=== PATIENT | male | born 1950 | race Caucasian/White ===

== ENCOUNTER → 2025-01-01 12:03 | Outpatient (CLI) | payer MEDICARE, OTHER, SELFPAY ==
[2025-01-01 19:47] LABS: Add Manual Diff / Slide Review NO; Hematocrit 28.6 % (41-53); Hemoglobin 9.4 g/dL (13.5-17.5); Lymphocytes Absolute Auto 1400 /uL (1100-4500); Mean Corpuscular HGB Conc 32.9 % (30-36); Mean Corpuscular Hemoglobin 29.5 PG (26-34); Mean Corpuscular Volume 89.8 fL (80-100); Platelet Count 417 X10^3/uL (150-400)
[2025-01-01 20:10] LABS: Blood Urea Nitrogen 21 mg/dL (9-20); Calcium 9.0 mg/dL (8.4-10.2); Carbon Dioxide 23 mmol/L (22-32); Chloride 100 mmol/L (98-107); Estimated Glomerular Filt Rate > 60 mL/min (>60); Glucose 75 mg/dL (70-99); HEMOLYSIS < 15 (0-50); Iron 29 ug/dL (49-181); Potassium 4.1 mmol/L (3.4-5.1); Sodium 134 mmol/L (137-145)
[2025-01-01 20:22] LABS: Percent Iron Saturation 8 % (20-50); Total Iron Binding Capacity 377 ug/dL (261-462); Transferrin 300 mg/dL (206-381)
== END ==
DX: K92.2 Gastrointestinal hemorrhage, unspecified (principal); E10.9 Type 1 diabetes mellitus without complications
CPT/HCPCS: 80048; 83540; 83550; 85025

== ENCOUNTER → 2025-02-10 11:36 | Outpatient (CLI) | payer MEDICARE, OTHER, SELFPAY ==
[2025-02-10 18:56] LABS: Add Manual Diff / Slide Review NO; Hematocrit 34.5 % (41-53); Hemoglobin 11.0 g/dL (13.5-17.5); Lymphocytes Absolute Auto 1300 /uL (1100-4500); Mean Corpuscular HGB Conc 31.9 % (30-36); Mean Corpuscular Hemoglobin 25.7 PG (26-34); Mean Corpuscular Volume 80.5 fL (80-100); Platelet Count 281 X10^3/uL (150-400)
[2025-02-10 19:10] LABS: HEMOLYSIS < 15 (0-50); Iron 187 ug/dL (49-181)
[2025-02-10 19:18] LABS: Blood Urea Nitrogen 20 mg/dL (9-20); Calcium 9.9 mg/dL (8.4-10.2); Carbon Dioxide 25 mmol/L (22-32); Chloride 99 mmol/L (98-107); Estimated Glomerular Filt Rate > 60 mL/min (>60); Glucose 173 mg/dL (70-99); HEMOLYSIS < 15 (0-50); Potassium 4.8 mmol/L (3.4-5.1); Sodium 132 mmol/L (137-145)
[2025-02-10 19:21] LABS: Percent Iron Saturation 50 % (20-50); Total Iron Binding Capacity 372 ug/dL (261-462); Transferrin 298 mg/dL (206-381)
[2025-02-10 19:49] LABS: Ferritin 13 ng/mL (18-464)
[2025-02-10 20:04] LABS: Anisocytosis 1+; Target Cells 1+
[2025-02-10 20:05] LABS: Microcytosis 1+
== END ==
PROVIDERS: Visit Provider Internal Medicine
DX: D50.9 Iron deficiency anemia, unspecified (principal); E87.1 Hypo-osmolality and hyponatremia; Z87.19 Personal history of other diseases of the digestive system
CPT/HCPCS: 80048; 82728; 83540; 83550; 85025